=== PATIENT | male | born 1960 | race African-American/Black ===

== ENCOUNTER 2021-01-26 06:49 | Observation (INO) ==
[2021-01-26 07:54] LABS: ABS Eosinophils 0.1 10^3/ul (0-0.6); ABS Lymphocytes 0.9 10^3/ul (1.0-4.8); ABS Monocytes 0.5 10^3/ul (0-0.8); ABS Neutrophils 5.7 10^3/ul (1.5-7.7); Eosinophil % 1.1 %; Hematocrit 34 % (42-52); Hemoglobin 11.3 g/dL (14.0-18.0); Lymphocyte % 12.3 %; Mean Corpuscular HGB Conc 33 g/dL (31-36); Mean Corpuscular Hemoglobin 31 pg (27-31); Mean Corpuscular Volume 94 fL (80-94); Mean Platelet Volume 8.4 fL (7.4-10.4); Platelet Count 233 10^3/uL (150-450); Red Blood Count 3.63 10^6 /uL (4.18-5.48); Red Cell Distribution Width 13 % (10-15); White Blood Count 7.2 10^3/uL (3.5-10.8)
[2021-01-26 08:03] LABS: INR 1.32 (0.86-1.15)
[2021-01-26 08:15] LABS: Albumin 4.3 g/dL (3.2-5.2); Albumin/Globulin Ratio 1.7 (1-3); Calcium 8.6 mg/dL (8.6-10.3); EGFR African American 82.9 (>60); EGFR Non-African American 68.5 (>60); Globulin 2.5 g/dL (2-4); Magnesium 1.1 mg/dL (1.9-2.7); Potassium 4.2 mmol/L (3.5-5.0); Total Bilirubin 0.8 mg/dL (0.2-1.0); Total Protein 6.8 g/dL (6.4-8.9); Troponin I 0.02 ng/mL (<0.03)
[2021-01-26] MEDS ORDERED: Magnesium Sulf 4 GM/100 ML IV 4,000 MG/100 ML BAG IVPB ONE (08:18)
[2021-01-26] MEDS ORDERED: Iodixanol (CONTRAST) 320 MG/ML 100 ML SDV IV ONE (10:07)
[2021-01-26] MEDS: Enoxaparin 40 MG/0.4 ML SYR SUBCUT SCH (13:32)
[2021-01-26] MEDS: Aspirin EC 81 mg TAB.EC (enteric coated) PO SCH (13:32)
[2021-01-26] MEDS ORDERED: Dextrose 50% Syringe 50 ml 25 GM/50 ML SYRINGE IV PUSH PRN (13:33)
[2021-01-26 14:09] LABS: % Iron Saturation 19 % (15-55); Iron 72 ug/dL (50-212); Total Iron Binding Capacity 378 mcg/dL (250-450); Transferrin 270 mg/dL (203-362); Unsaturated Iron Binding < 363 ug/dL
[2021-01-26 14:22] LABS: Ferritin 94.6 ng/mL (24-336)
[2021-01-26] MEDS: Insulin GLARGINE 100 un/ml 10 ml VIAL SUBCUT SCH (21:57)
[2021-01-27 05:41] LABS: ABS Eosinophils 0.1 10^3/ul (0-0.6); ABS Lymphocytes 1.4 10^3/ul (1.0-4.8); ABS Monocytes 0.7 10^3/ul (0-0.8); ABS Neutrophils 5.7 10^3/ul (1.5-7.7); Eosinophil % 0.7 %; Hematocrit 33 % (42-52); Hemoglobin 10.7 g/dL (14.0-18.0); Lymphocyte % 17.4 %; Mean Corpuscular HGB Conc 32 g/dL (31-36); Mean Corpuscular Hemoglobin 30 pg (27-31); Mean Corpuscular Volume 95 fL (80-94); Mean Platelet Volume 8.6 fL (7.4-10.4); Platelet Count 228 10^3/uL (150-450); Red Blood Count 3.52 10^6 /uL (4.18-5.48); Red Cell Distribution Width 12 % (10-15); White Blood Count 7.9 10^3/uL (3.5-10.8)
[2021-01-27 05:57] LABS: Calcium 8.6 mg/dL (8.6-10.3); EGFR African American 88.5 (>60); EGFR Non-African American 73.2 (>60); HDL Cholesterol 34.5 mg/dL; Potassium 3.9 mmol/L (3.5-5.0)
[2021-01-27 06:25] LABS: TSH Ultra Thyroid Stim Horm 1.48 mcIU/mL (0.34-5.60)
[2021-01-27] MEDS ORDERED: Aminophylline 25 MG/ML VIAL ONE (10:18)
[2021-01-27] MEDS ORDERED: Regadenoson 0.4 MG/5 ML SYRINGE ONE (10:18)
[2021-01-27] MEDS: Nicotine PATCH 7 MG/24 HR PATCH TRANSDERM SCH (12:40)
[2021-01-27] MEDS: Aspirin EC 81 mg TAB.EC (enteric coated) PO SCH (12:41)
[2021-01-27] MEDS ORDERED: Perflutren Lipid Microsphere 3 ML VIAL ONE (13:45)
[2021-01-27] MEDS: Enoxaparin 40 MG/0.4 ML SYR SUBCUT SCH (14:19)
[2021-01-27] MEDS ORDERED: Furosemide 20 mg/2 ml IV VIAL IV ONE (20:14)
[2021-01-27] MEDS ORDERED: Potassium Chlor 10 meq TAB PO ONE (20:15)
[2021-01-27] MEDS: Insulin GLARGINE 100 un/ml 10 ml VIAL SUBCUT SCH (20:46)
[2021-01-28 06:03] LABS: ABS Eosinophils 0.1 10^3/ul (0-0.6); ABS Lymphocytes 1.4 10^3/ul (1.0-4.8); ABS Monocytes 0.8 10^3/ul (0-0.8); ABS Neutrophils 5.9 10^3/ul (1.5-7.7); Eosinophil % 1.5 %; Hematocrit 33 % (42-52); Hemoglobin 10.9 g/dL (14.0-18.0); Lymphocyte % 16.8 %; Mean Corpuscular HGB Conc 33 g/dL (31-36); Mean Corpuscular Hemoglobin 31 pg (27-31); Mean Corpuscular Volume 94 fL (80-94); Mean Platelet Volume 8.6 fL (7.4-10.4); Platelet Count 238 10^3/uL (150-450); Red Blood Count 3.54 10^6 /uL (4.18-5.48); Red Cell Distribution Width 13 % (10-15); White Blood Count 8.2 10^3/uL (3.5-10.8)
[2021-01-28 06:28] LABS: EGFR African American 97.2 (>60); EGFR Non-African American 80.3 (>60); Magnesium 1.4 mg/dL (1.9-2.7)
[2021-01-28] MEDS: Aspirin EC 81 mg TAB.EC (enteric coated) PO SCH (07:55)
[2021-01-28] MEDS: Nicotine PATCH 7 MG/24 HR PATCH TRANSDERM SCH (07:56)
[2021-01-28] MEDS ORDERED: Magnesium Sulfate 2 gm BAG 2 GM/50 ML BAG IVPB ONE (10:54)
[2021-01-28 11:30] VITALS: BP 132/61
== END 2021-01-28 15:00 | disposition home or self-care (01) ==
LOC: ED 06:49 → MEDTELE 06:49 → SUATTDRO 13:16 → MEDTELE 20:59
PROVIDERS: ADMIT Internal Medicine; ATTEND Internal Medicine

== ENCOUNTER 2021-07-02 06:46 | Observation (INO) ==
[2021-07-02 08:37] LABS: ABS Eosinophils 0.1 10^3/ul (0-0.6); ABS Lymphocytes 0.8 10^3/ul (1.0-4.8); ABS Monocytes 0.6 10^3/ul (0-0.8); ABS Neutrophils 5.7 10^3/ul (1.5-7.7); Eosinophil % 0.9 %; Hematocrit 34 % (42-52); Hemoglobin 11.2 g/dL (14.0-18.0); Lymphocyte % 11.2 %; Mean Corpuscular HGB Conc 33 g/dL (31-36); Mean Corpuscular Hemoglobin 31 pg (27-31); Mean Corpuscular Volume 95 fL (80-94); Mean Platelet Volume 8.9 fL (7.4-10.4); Nucleated Red Blood Cells % 0.1; Platelet Count 243 10^3/uL (150-450); Red Blood Count 3.62 10^6 /uL (4.18-5.48); Red Cell Distribution Width 13 % (10-15); White Blood Count 7.2 10^3/uL (3.5-10.8)
[2021-07-02 08:55] LABS: ALT 40 U/L (7-52); Albumin 4.5 g/dL (3.2-5.2); Albumin/Globulin Ratio 1.6 (1-3); Alkaline Phosphatase 69 U/L (35-149); Blood Urea Nitrogen 24 mg/dL (6-24); CO2 Carbon Dioxide 32 mmol/L (22-32); Calcium 9.8 mg/dL (8.6-10.3); Chloride 102 mmol/L (101-111); Globulin 2.9 g/dL (2-4); Glucose 197 mg/dL (70-100); Sodium 139 mmol/L (135-145); Total Protein 7.4 g/dL (6.4-8.9); eGFR CKD-EPI 79.8 (>60)
[2021-07-02 09:01] LABS: Troponin I 0.03 ng/mL (<0.03)
[2021-07-02 10:19] LABS: Anion Gap 5 mmol/L (2-11)
[2021-07-02 11:35] LABS: Troponin I 0.04 ng/mL (<0.03)
[2021-07-02] MEDS ORDERED: Furosemide 40 mg/4 ml IV VIAL IV SLOW PU ONE (13:29)
[2021-07-02] MEDS ORDERED: Enoxaparin 40 MG/0.4 ML SYR SUBCUT SCH (14:00)
[2021-07-02] MEDS ORDERED: Dextrose 50% Syringe 50 ml 25 GM/50 ML SYRINGE IV PUSH PRN (14:08)
[2021-07-02 14:34] LABS: Cholesterol 116 mg/dL; HDL Cholesterol 43.2 mg/dL; LDL Cholesterol 61 mg/dL; Magnesium 1.7 mg/dL (1.9-2.7); Triglycerides 60 mg/dL
[2021-07-02 15:06] LABS: Troponin I 0.03 ng/mL (<0.03)
[2021-07-03 06:23] LABS: ABS Eosinophils 0.1 10^3/ul (0-0.6); ABS Lymphocytes 0.9 10^3/ul (1.0-4.8); ABS Monocytes 0.5 10^3/ul (0-0.8); Eosinophil % 1.4 %; Hematocrit 32 % (42-52); Hemoglobin 10.4 g/dL (14.0-18.0); Lymphocyte % 13.1 %; Mean Corpuscular HGB Conc 33 g/dL (31-36); Mean Corpuscular Hemoglobin 31 pg (27-31); Mean Corpuscular Volume 94 fL (80-94); Mean Platelet Volume 8.7 fL (7.4-10.4); Platelet Count 216 10^3/uL (150-450); Red Blood Count 3.36 10^6 /uL (4.18-5.48); Red Cell Distribution Width 14 % (10-15); White Blood Count 6.5 10^3/uL (3.5-10.8)
[2021-07-03 06:39] LABS: Calcium 9.1 mg/dL (8.6-10.3); Magnesium 1.6 mg/dL (1.9-2.7); Potassium 4.2 mmol/L (3.5-5.0); eGFR CKD-EPI 68.6 (>60)
[2021-07-03] MEDS ORDERED: Magnesium Sulfate IV 3 GM in NS 0.9% 100 ml BAG 100 ML IVPB ONE (09:09)
[2021-07-03 13:22] VITALS: BP 137/73
== END 2021-07-03 13:30 | disposition home or self-care (01) ==
LOC: ED 06:46 → EDHOLD 13:41 → INTOOBSV 13:41 → MEDTELE 17:13
PROVIDERS: ADMIT Hospitalist; ATTEND Hospitalist